=== PATIENT | female | born 1980 | race Caucasian/White ===

== ENCOUNTER 2019-01-14 15:21 | Emergency (ER) | payer SELFPAY ==
[~2019-01-14 15:21] MED LIST: HYDR25CA83 PO; LOR5/325 PO; METR-1 PO; PRED20TA6 PO; RANI-366 PO
--- NOTE | 2019-01-14 15:35 | ER Report ---
History and Physical Time Seen By MD: 15:35 Hx. of Stated Complaint: vaginal bleeding for 10 days not during regular time for pt's menstruation, constant "stabbing and burning" pain "from my vagina to my ribcage". vomiting diarrhea dizziness. HPI/ROS CHIEF COMPLAINT: 10 days of pelvic bleeding an pain HISTORY OF PRESENT ILLNESS: Pt states that she had her regular period the first week of December which lasted 4 days. States that perod was normal. Pt then restarted bleeding 10 days ago and has not stopped. + large clots. Never had irregular period before. + cramping across lower abdomen. + sharp pain. + nausea. Had 2 loose stools today but not sure if that is related. no fevers. no chills. Pt does not think she is . No hx of fibroids or large ovarian cysts. REVIEW OF SYSTEMS: Constitutional: No fever, no chills. Eyes: No discharge. ENT: No sore throat. Cardiovascular: No chest pain, no palpitations. Respiratory: No cough, no shortness of breath. Gastrointestinal: + abdominal pain, + nausea, no vomiting. Genitourinary: No hematuria. Musculoskeletal: No back pain. Skin: No rashes. Neurological: No headache. Allergies: Coded Allergies: No Known Drug Allergies (Unverified , 04/13/16) Home Meds Reported Medications Ibuprofen (IBUPROFEN) 200 Mg Capsule, 1 CAP PO Q6H, CAPSULE 01/14/19 Discontinued Scripts Hydrocodone Bit/Acetaminophen (HYDROCODON-ACETAMINOPHEN 5-325) 1 Each Tablet, 1 EACH PO Q4-6H PRN for PAIN, #15 TAB Prov:ZIYAD DORMAN V DO 06/07/17 Metronidazole (FLAGYL) 500 Mg Tablet, 500 MG PO BID, #14 TAB Prov:ZIYAD DORMAN V DO 06/07/17 Ranitidine Hcl (ZANTAC) 150 Mg Tablet, 150 MG PO BID, #10 TAB Prov:RERE MEADE DO 04/13/16 Prednisone (PREDNISONE) 20 Mg Tablet, 20 MG PO BID, #1 TAB Prov:RERE MEADE DO 04/13/16 Hydroxyzine Pamoate (VISTARIL) 25 Mg Capsule, 25-50 MG PO Q6H for itching, #30 CAPSULE Prov:RERE MEADE DO 7/16/16 Past Medical/Surgical History Pmhx: trichamonas/cervicitis Pshx: noncontrib Reviewed Nurses Notes: Yes Old Medical Records Reviewed: Yes Hx Smoking: Yes Smoking Status: Current: Every Day Smoker Hx Substance Use Disorder: No Hx Alcohol Use: Yes (occ) Constitutional Vital Sign - Last 24 Hours 01/14/19 01/14/19 01/14/19 01/14/19 15:26 15:30 15:36 15:51 Temp 98.6 Pulse 109 106 93 Resp 18 B/P (MAP) 154/102 154/102 (119) Pulse Ox 97 97 96 O2 Delivery Room Air 01/14/19 01/14/19 01/14/19 01/14/19 16:06 16:21 16:29 16:36 Pulse 91 84 81 B/P (MAP) 126/73 (90) Pulse Ox 95 96 95 01/14/19 01/14/19 01/14/19 16:51 17:00 17:06 Pulse 78 76 B/P (MAP) 141/93 (109) Pulse Ox 95 95 Physical Exam General Appearance: The patient is alert, has no immediate need for airway protection and no signs of toxicity. Eyes: Pupils equal and round no pallor or injection, EOMI ENT: no pharyngeal erythema or exudates, Mucous membranes are moist Respiratory: There are no retractions, lungs are clear to auscultation. Cardiovascular: Regular rate and rhythm. pulses are equal and symmetrical Gastrointestinal: Abdomen is soft but diffusely tender in lower abdomen, no masses, bowel sounds normal, no guarding, no rigidity or rebound Pelvic: + 10 ml of blood/clots in vaginal vault on exam. + tender fundus with blood out of os with palpation, no cmt, + r adnexal tender Neurological: Cranial nerves II-XII grossly intact, no sensory or motor loss Skin: Warm and dry, no rashes. Musculoskeletal: Neck is supple non tender, no vertebral tenderness Extremities are nontender, nonswollen and have full range of motion. DIFFERENTIAL DIAGNOSIS: After history and physical exam differential diagnosis was considered for ovarian cysts, fibroids Medical Decision Making Data Points Result Diagram: 01/14/19 1600 01/14/19 1600 Laboratory Hematology Test 01/14/19 16:00 Red Blood Count 4.79 M/uL (4.17-5.56) Mean Corpuscular Volume 87.2 fL (80.0-96.0) Mean Corpuscular Hemoglobin 29.9 pg (26.0-33.0) Mean Corpuscular Hemoglobin Concent 34.3 g/dL (32.0-36.0) Red Cell Distribution Width 12.8 % (11.5-14.5) Mean Platelet Volume 8.1 fL (7.2-11.1) Neutrophils (%) (Auto) 81.0 % (39.4-72.5) Lymphocytes (%) (Auto) 13.0 % (17.6-49.6) Monocytes (%) (Auto) 4.5 % (4.1-12.4) Eosinophils (%) (Auto) 1.0 % (0.4-6.7) Basophils (%) (Auto) 0.5 % (0.3-1.4) Nucleated RBC Relative Count (auto) 0.0 /100WBC Neutrophils # (Auto) 12.6 K/uL (2.0-7.4) Lymphocytes # (Auto) 2.0 K/uL (1.3-3.6) Monocytes # (Auto) 0.7 K/uL (0.3-1.0) Eosinophils # (Auto) 0.2 K/uL (0.0-0.5) Basophils # (Auto) 0.1 K/uL (0.0-0.1) Nucleated RBC Absolute Count (auto) 0.01 K/uL Sodium Level 139 mmol/L (137-145) Potassium Level 4.1 mmol/L (3.5-5.0) Chloride Level 106 mmol/L (98-107) Carbon Dioxide Level 21 mmol/L (22-31) Blood Urea Nitrogen 13 mg/dl (7-18) Creatinine 0.70 mg/dl (0.52-1.04) Glomerular Filtration Rate Calc > 60.0 Random Glucose 98 mg/dl (75-110) Calcium Level 9.9 mg/dl (8.4-10.2) Total Bilirubin 0.5 mg/dl (0.2-1.3) Aspartate Amino Transf (AST/SGOT) 18 U/L (0-35) Alanine Aminotransferase (ALT/SGPT) 21 U/L (0-56) Alkaline Phosphatase 92 U/L (0-126) Total Protein 8.1 g/dl (6.3-8.2) Albumin 4.6 g/dl (3.5-5.0) Human Chorionic Gonadotropin, Qual Negative (NEGATIVE) Chemistry Test 01/14/19 16:00 White Blood Count 15.5 k/uL (4.5-11.0) Red Blood Count 4.79 M/uL (4.17-5.56) Hemoglobin 14.3 g/dL (12.0-16.0) Hematocrit 41.8 % (34.0-47.0) Mean Corpuscular Volume 87.2 fL (80.0-96.0) Mean Corpuscular Hemoglobin 29.9 pg (26.0-33.0) Mean Corpuscular Hemoglobin Concent 34.3 g/dL (32.0-36.0) Red Cell Distribution Width 12.8 % (11.5-14.5) Platelet Count 309 K/uL (150-450) Mean Platelet Volume 8.1 fL (7.2-11.1) Neutrophils (%) (Auto) 81.0 % (39.4-72.5) Lymphocytes (%) (Auto) 13.0 % (17.6-49.6) Monocytes (%) (Auto) 4.5 % (4.1-12.4) Eosinophils (%) (Auto) 1.0 % (0.4-6.7) Basophils (%) (Auto) 0.5 % (0.3-1.4) Nucleated RBC Relative Count (auto) 0.0 /100WBC Neutrophils # (Auto) 12.6 K/uL (2.0-7.4) Lymphocytes # (Auto) 2.0 K/uL (1.3-3.6) Monocytes # (Auto) 0.7 K/uL (0.3-1.0) Eosinophils # (Auto) 0.2 K/uL (0.0-0.5) Basophils # (Auto) 0.1 K/uL (0.0-0.1) Nucleated RBC Absolute Count (auto) 0.01 K/uL Glomerular Filtration Rate Calc > 60.0 Calcium Level 9.9 mg/dl (8.4-10.2) Total Bilirubin 0.5 mg/dl (0.2-1.3) Aspartate Amino Transf (AST/SGOT) 18 U/L (0-35) Alanine Aminotransferase (ALT/SGPT) 21 U/L (0-56) Alkaline Phosphatase 92 U/L (0-126) Total Protein 8.1 g/dl (6.3-8.2) Albumin 4.6 g/dl (3.5-5.0) Human Chorionic Gonadotropin, Qual Negative (NEGATIVE) EKG/Imaging Imaging Complex cyst on Left ovary thickened endometrium 8mm ED Course/Re-evaluation ED Course Check pelvic ultrasound and labs 01/14/2019 5:13:53 pm Page out to toolroom helper 01/14/2019 5:26:05 pm Spoke with . would like me to start Provera 10mg daily for 10 days. Pt can call their office in the morning and her partner, Dr. Jory Balderrama should have openings for her to be seen this week. 01/14/2019 5:36:52 pm Pt agreeable to starting Provera for 10 days and states she will follow up with security nurse. Decision to Disposition Date: Jan 14, 2019 Decision to Disposition Time: 17:37 Depart Departure Latest Vital Signs Vital Signs Date Time Temp Pulse Resp B/P (MAP) Pulse Ox O2 Delivery O2 Flow Rate FiO2 01/14/19 17:06 76 95 01/14/19 17:00 141/93 (109) 01/14/19 15:26 98.6 18 Room Air Core Temperature (Celsius): 36.84 Impression: Primary Impression: Hemorrhagic cyst of left ovary Additional Impressions: Menometrorrhagia Pelvic pain Condition: Improved Disposition: HOME OR SELF-CARE Referrals: JORY BALDERRAMA DO 2 Days Call tomorrow morning to make a follow up appointment this week. New Scripts Medroxyprogesterone Acetate (PROVERA) 10 Mg Tablet 10 MG PO DAILY, #9 TAB start tomorrow, 01/15, evening Prov: ZIYAD DORMAN V DO 01/14/19 Departure Forms: ER Transition Record, Medications Reconciliation, Off Work/School Form, School or Work Release?: Work Number of days to be released: 2 Patient Portal Information Patient Instructions: Menorrhagia (ED), Ovarian Cyst (ED) Additional Instructions: Your ultrasound today showed a complex ovarian cyst. I spoke with Dr. Mobley (field nurse) who would like me to start you on Provera 10mg once a day for 10 days. We gave you your first dose in the emergency room. This will stop your bleeding. You will need to follow up with field nurse for your ovarian cyst as well as your abnormal uterine bleeding. Dr. Mobley suggested you call their office in the morning and her partner, Dr. Balderrama should have some opening to take you as a new patient. Motrin (advil, ibuprofen) 600mg every 6 hours as needed with help reduce your bleeding and cramping. Vicodin one every 6 hours as needed for severe pain (you can take this with the motrin). Problem Qualifiers ZIYAD DORMAN DO Jan 14, 2019 15:35
[2019-01-14] MEDS ORDERED: IBUP-136 PO (15:36)
[2019-01-14] MEDS ORDERED: NS(*) 0.9% 1000 ML BAG 1,000 ML IV ONE (15:45)
[2019-01-14] MEDS ORDERED: KETOROLAC 30 MG/ML VIAL IVP ONE (15:45)
[2019-01-14 16:13] LABS: PLATELET COUNT, AUTOMATED 309 K/uL (150-450)
--- NOTE | 2019-01-14 16:58 | RADIOLOGY IMAGING REPORT ---
[place] [facility] [place] NAME: Shamir Torres : 1980 MR: [id number] V: [id number] EXAM DATE: [id number] ORDERING PHYSICIAN: ZIYAD DORMAN TECHNOLOGIST: Location: [facility] Patient: Shamir Torres : 1980 Visit/Account:[id number] Date of Sevice: 01/14/2019 TRANSVAGINAL NON-OB HISTORY: pelvic pain; menometrorrhagia TECHNIQUE: Transvaginal ultrasound pelvis. COMPARISON: June 07, 2017 FINDINGS: Uterus: ; 7.1 cm length x 3.6 cm AP x 5.5 cm transverse. Myometrium: Unremarkable. Endometrium: Unremarkable; double thickness 8 mm. Cervix: Grossly negative. Ovaries: Right - 3.6 x 2.6 x 2.2 cm Left - 4.2 x 3.6 x 2.3 cm and contains a 2.6 x 1.9 x 2.7 cm complex cystic structure Blood flow is documented in each ovary by duplex Doppler ultrasound. Adnexa: Mildly prominent adnexal vessels bilaterally. Free pelvic fluid: None. IMPRESSION: There is a 2.6 x 1.9 x 2.7 cm complex cystic structure within the left ovary. This could represent a hemorrhagic cyst however short-term interval follow-up ultrasound recommended Slightly prominent adnexal vessels bilaterally Report Dictated By: Keturah Xiong MD at 01/14/2019 4:48 PM Report E-Signed By: Keturah Xiong MD at 01/14/2019 4:54 PM WSN:[id number]
[2019-01-14 17:30] VITALS: BP 134/85
[2019-01-14] MEDS ORDERED: medroxyPROGES ACE 10 MG TAB PO ONE (17:35)
[2019-01-14] MEDS ORDERED: MEDR10TA57 PO (17:40)
[2019-01-14] MEDS ORDERED: HYDR-385 PO (17:40)
== END 2019-01-14 17:55 | disposition home or self-care (01) ==
LOC: ER 15:45
DX: N83.202 Unspecified ovarian cyst, left side (principal); R10.2 Pelvic and perineal pain; N92.1 Excessive and frequent menstruation with irregular cycle; R10.30 Lower abdominal pain, unspecified
CPT/HCPCS: 76830; 84443; 84703; 85025; 96361; 96374; 99284; J1885; J7030; 82040; 82247; 82310; 82374; 82435; 82565; 82947; 84075; 84132; 84155; 84295; 84450; 84460; 84520

== ENCOUNTER 2019-01-21 10:03 | Emergency (ER) | payer SELFPAY ==
[~2019-01-21 10:03] MED LIST changes: +HYDR-385 PO; +IBUP-136 PO; +MEDR10TA57 PO
[2019-01-21] MEDS ORDERED: NS(*) 0.9% 1000 ML BAG 1,000 ML IV ONE ×2 (10:35→11:20)
[2019-01-21] MEDS ORDERED: ONDANSETRON 4 MG/2 ML VIAL IVP ONE (10:35)
--- NOTE | 2019-01-21 10:36 | ER Report ---
History and Physical Time Seen By MD: 10:25 Hx. of Stated Complaint: Pt. has been vomiting since Friday this week. Was seen in ER on Friday, as well. Can't keep food or liquids down. This morning she passed out in the shower. No fever. HPI/ROS CHIEF COMPLAINT: Vomiting HISTORY OF PRESENT ILLNESS: 38-year-old female presents with vomiting for 4 days. Patient states she was seen on January 14 for uterine bleeding. Workup showed complex ovarian cyst and ongoing uterine bleeding. Her OB was consulted and she was started on Provera by mouth. Patient was able to take 2 doses, however, began developing vomiting multiple times since then. She states that anytime she tries to take by mouth, she vomits the contents, as well as some yellow fluid. Patient denies bloody or black vomiting. She has not attempted to take further doses. She does say that the urinary bleeding has been improving. She has vomited multiple episodes each day, too numerous to count. She had one episode of loose, nonbloody, nonblack stool today, however has not had other diarrhea. Patient does not have any significant abdominal pain other than a burning sensation that has developed in the mid epigastric area. She has not had symptoms like this before. She has not taking anything for the vomiting. She feels chills though no fever. She has not had change in urination. REVIEW OF SYSTEMS: Constitutional: No fever, no chills. Eyes: No discharge. ENT: No sore throat. Cardiovascular: No chest pain, no palpitations. Respiratory: No cough, no shortness of breath. Gastrointestinal: above Genitourinary: no dysuria, otherwise as above Musculoskeletal: No back pain. Skin: No rashes. Neurological: No headache. Remainder of the 14 system rev: Yes Allergies: Coded Allergies: No Known Drug Allergies (Unverified , 01/21/19) Home Meds Active Scripts Ondansetron 4 Mg Odt (ONDANSETRON 4 MG ODT) 4 Mg Tab.rapdis, 4 MG PO Q8H for Nausea, #10 TAB Prov:ASHVIN CABRALES MD 01/21/19 Hydrocodone Bit/Acetaminophen (HYDROCODON-ACETAMINOPHEN 5-325) 1 Each Tablet, 1 EACH PO Q4H PRN for PAIN, #10 TAB Prov:ZIYAD DORMAN DO 01/14/19 Medroxyprogesterone Acetate (PROVERA) 10 Mg Tablet, 10 MG PO DAILY, #9 TAB start tomorrow, 01/15, evening Prov:ZIYAD DORMAN DO 01/14/19 Reported Medications Ibuprofen (IBUPROFEN) 200 Mg Capsule, 1 CAP PO Q6H, CAPSULE 01/14/19 Reviewed Nurses Notes: Yes Old Medical Records Reviewed: Yes Hx Smoking: Yes Smoking Status: Current: Every Day Smoker Hx Substance Use Disorder: No Hx Alcohol Use: Yes (occ) Constitutional Vital Sign - Last 24 Hours 01/21/19 01/21/19 01/21/19 01/21/19 10:07 10:09 10:13 10:18 Temp 97.8 Pulse 101 97 84 Resp 16 B/P (MAP) 132/93 132/93 (106) Pulse Ox 96 95 94 O2 Delivery Room Air 01/21/19 01/21/19 01/21/19 01/21/19 10:23 10:28 10:30 10:33 Pulse 91 96 89 B/P (MAP) 136/111 (119) Pulse Ox 95 94 96 01/21/19 01/21/19 01/21/19 01/21/19 10:38 10:43 10:48 10:53 Pulse 76 75 74 75 Pulse Ox 94 96 94 95 01/21/19 01/21/19 01/21/19 01/21/19 10:58 11:00 11:03 11:08 Pulse 77 73 76 B/P (MAP) 147/98 (114) Pulse Ox 93 94 95 01/21/19 01/21/19 01/21/19 01/21/19 11:13 11:18 11:23 11:28 Pulse 73 74 80 79 Pulse Ox 96 94 93 95 01/21/19 01/21/19 01/21/19 01/21/19 11:30 11:33 11:38 11:43 Pulse 78 74 78 B/P (MAP) 152/100 (117) Pulse Ox 95 96 96 01/21/19 01/21/19 01/21/19 01/21/19 11:48 11:53 11:58 12:00 Pulse 74 ? B/P (MAP) 159/60 (93) Pulse Ox 95 01/21/19 01/21/19 01/21/19 01/21/19 12:03 12:08 12:13 12:18 Pulse 74 70 68 64 Pulse Ox 93 95 94 97 01/21/19 01/21/19 01/21/19 01/21/19 12:23 12:28 12:30 12:33 Pulse 68 ??? 74 B/P (MAP) 143/86 (105) Pulse Ox 96 95 95 01/21/19 01/21/19 01/21/19 01/21/19 12:40 12:43 12:48 12:53 Pulse 73 74 71 B/P (MAP) 152/93 (112) Pulse Ox 97 95 95 Intake and Output 01/21/19 01/21/19 01/22/19 15:00 23:00 07:00 Intake Total 2000 ml Balance 2000 ml Physical Exam General Appearance: The patient is alert, has no immediate need for airway protection and no signs of toxicity. Eyes: Pupils equal and round no pallor or injection. ENT, Mouth: mucous membranes are dry Respiratory: There are no retractions, lungs are clear to auscultation. Cardiovascular: Regular rate and rhythm. no m/r/g Gastrointestinal: Abdomen is soft with epigastric ttp, no masses, bowel sounds normal. Neurological: alert oriented, moves all ext Skin: Warm and dry, no rashes. Musculoskeletal: Neck is supple non tender. Extremities are nontender, nonswollen and have full range of motion. DIFFERENTIAL DIAGNOSIS: After history and physical exam differential diagnosis was considered for abdominal pain including but not limited to appendicitis, cholecystitis, gastritis and urinary tract infection, pancreatitis, mass, obstruction, complication of peptic ulcer disease Medical Decision Making Data Points Result Diagram: 01/21/19 1009 01/21/19 1009 Laboratory Hematology Test 01/21/19 10:09 01/21/19 12:36 01/21/19 13:25 Red Blood Count 5.49 M/uL (4.17-5.56) Mean Corpuscular Volume 85.5 fL (80.0-96.0) Mean Corpuscular Hemoglobin 29.5 pg (26.0-33.0) Mean Corpuscular Hemoglobin Concent 34.5 g/dL (32.0-36.0) Red Cell Distribution Width 12.6 % (11.5-14.5) Mean Platelet Volume 8.3 fL (7.2-11.1) Neutrophils (%) (Auto) 83.8 % (39.4-72.5) Lymphocytes (%) (Auto) 8.3 % (17.6-49.6) Monocytes (%) (Auto) 5.9 % (4.1-12.4) Eosinophils (%) (Auto) 1.0 % (0.4-6.7) Basophils (%) (Auto) 1.0 % (0.3-1.4) Nucleated RBC Relative Count (auto) 0.1 /100WBC Neutrophils # (Auto) 17.3 K/uL (2.0-7.4) Lymphocytes # (Auto) 1.7 K/uL (1.3-3.6) Monocytes # (Auto) 1.2 K/uL (0.3-1.0) Eosinophils # (Auto) 0.2 K/uL (0.0-0.5) Basophils # (Auto) 0.2 K/uL (0.0-0.1) Nucleated RBC Absolute Count (auto) 0.02 K/uL Sodium Level 135 mmol/L (137-145) Potassium Level 3.6 mmol/L (3.5-5.0) Chloride Level 98 mmol/L (98-107) Carbon Dioxide Level 23 mmol/L (22-31) Blood Urea Nitrogen 27 mg/dl (7-18) Creatinine 1.00 mg/dl (0.52-1.04) Glomerular Filtration Rate Calc > 60.0 Random Glucose 117 mg/dl (75-110) Calcium Level 9.6 mg/dl (8.4-10.2) Magnesium Level 2.3 mg/dl (1.7-2.2) Total Bilirubin 0.7 mg/dl (0.2-1.3) Aspartate Amino Transf (AST/SGOT) 22 U/L (0-35) Alanine Aminotransferase (ALT/SGPT) 20 U/L (0-56) Alkaline Phosphatase 109 U/L (0-126) Total Protein 7.8 g/dl (6.3-8.2) Albumin 4.2 g/dl (3.5-5.0) Lipase 160 U/L (23-300) Human Chorionic Gonadotropin, Qual Negative (NEGATIVE) Urine Hyaline Casts Few /LPF (NONE-FEW) Urine Color Yellow Urine Clarity Clear Urine pH 6.0 pH (4.8-9.5) Urine Specific [place] 1.048 Urine Protein Negative mg/dL (NEGATIVE) Urine Glucose (UA) Negative mg/dL (NEGATIVE) Urine Ketones 20 mg/dL (NEGATIVE) Urine Blood Moderate (NEGATIVE) Urine Nitrite Negative (NEGATIVE) Urine Bilirubin Negative (NEGATIVE) Urine Urobilinogen Negative mg/dL (0.2-1.9) Urine Leukocyte Esterase Trace (NEGATIVE) Urine RBC 2 /HPF (0-2/HPF) Urine WBC 3 /HPF (0-5/HPF) Urine Squamous Epithelial Cells Few /LPF (</=FEW) Urine Bacteria Negative /HPF (NONE-FEW) Urine Mucus None /HPF (NONE-FEW) Chemistry Test 01/21/19 10:09 01/21/19 12:36 01/21/19 13:25 White Blood Count 20.6 k/uL (4.5-11.0) Red Blood Count 5.49 M/uL (4.17-5.56) Hemoglobin 16.2 g/dL (12.0-16.0) Hematocrit 46.9 % (34.0-47.0) Mean Corpuscular Volume 85.5 fL (80.0-96.0) Mean Corpuscular Hemoglobin 29.5 pg (26.0-33.0) Mean Corpuscular Hemoglobin Concent 34.5 g/dL (32.0-36.0) Red Cell Distribution Width 12.6 % (11.5-14.5) Platelet Count 483 K/uL (150-450) Mean Platelet Volume 8.3 fL (7.2-11.1) Neutrophils (%) (Auto) 83.8 % (39.4-72.5) Lymphocytes (%) (Auto) 8.3 % (17.6-49.6) Monocytes (%) (Auto) 5.9 % (4.1-12.4) Eosinophils (%) (Auto) 1.0 % (0.4-6.7) Basophils (%) (Auto) 1.0 % (0.3-1.4) Nucleated RBC Relative Count (auto) 0.1 /100WBC Neutrophils # (Auto) 17.3 K/uL (2.0-7.4) Lymphocytes # (Auto) 1.7 K/uL (1.3-3.6) Monocytes # (Auto) 1.2 K/uL (0.3-1.0) Eosinophils # (Auto) 0.2 K/uL (0.0-0.5) Basophils # (Auto) 0.2 K/uL (0.0-0.1) Nucleated RBC Absolute Count (auto) 0.02 K/uL Glomerular Filtration Rate Calc > 60.0 Calcium Level 9.6 mg/dl (8.4-10.2) Magnesium Level 2.3 mg/dl (1.7-2.2) Total Bilirubin 0.7 mg/dl (0.2-1.3) Aspartate Amino Transf (AST/SGOT) 22 U/L (0-35) Alanine Aminotransferase (ALT/SGPT) 20 U/L (0-56) Alkaline Phosphatase 109 U/L (0-126) Total Protein 7.8 g/dl (6.3-8.2) Albumin 4.2 g/dl (3.5-5.0) Lipase 160 U/L (23-300) Human Chorionic Gonadotropin, Qual Negative (NEGATIVE) Urine Hyaline Casts Few /LPF (NONE-FEW) Urine Color Yellow Urine Clarity Clear Urine pH 6.0 pH (4.8-9.5) Urine Specific [place] 1.048 Urine Protein Negative mg/dL (NEGATIVE) Urine Glucose (UA) Negative mg/dL (NEGATIVE) Urine Ketones 20 mg/dL (NEGATIVE) Urine Blood Moderate (NEGATIVE) Urine Nitrite Negative (NEGATIVE) Urine Bilirubin Negative (NEGATIVE) Urine Urobilinogen Negative mg/dL (0.2-1.9) Urine Leukocyte Esterase Trace (NEGATIVE) Urine RBC 2 /HPF (0-2/HPF) Urine WBC 3 /HPF (0-5/HPF) Urine Squamous Epithelial Cells Few /LPF (</=FEW) Urine Bacteria Negative /HPF (NONE-FEW) Urine Mucus None /HPF (NONE-FEW) Urinalysis Test 01/21/19 12:36 01/21/19 13:25 Urine Hyaline Casts Few /LPF (NONE-FEW) Urine Color Yellow Urine Clarity Clear Urine pH 6.0 pH (4.8-9.5) Urine Specific [place] 1.048 Urine Protein Negative mg/dL (NEGATIVE) Urine Glucose (UA) Negative mg/dL (NEGATIVE) Urine Ketones 20 mg/dL (NEGATIVE) Urine Blood Moderate (NEGATIVE) Urine Nitrite Negative (NEGATIVE) Urine Bilirubin Negative (NEGATIVE) Urine Urobilinogen Negative mg/dL (0.2-1.9) Urine Leukocyte Esterase Trace (NEGATIVE) Urine RBC 2 /HPF (0-2/HPF) Urine WBC 3 /HPF (0-5/HPF) Urine Squamous Epithelial Cells Few /LPF (</=FEW) Urine Bacteria Negative /HPF (NONE-FEW) Urine Mucus None /HPF (NONE-FEW) ED Course/Re-evaluation ED Course Pt presents with multiple days of vomiting after being placed on progesterone due to uterine bleeding. Has not arranged OB f/u and has not kept down medication, though bleeding has improved. After zofran pt improves in ED, tolerates PO. Leukocytosis noted, and given some abd ttp ,CT ordered, though CT unremarkable for acute findings, and rpt exam benign. Leukocytosis more likely acute phase reactant as pt appears very well after ED eval and understands SRP's Decision to Disposition Date: Jan 21, 2019 Decision to Disposition Time: 13:45 Depart Departure Latest Vital Signs Vital Signs Date Time Temp Pulse Resp B/P (MAP) Pulse Ox O2 Delivery O2 Flow Rate FiO2 01/21/19 12:53 71 95 01/21/19 12:40 152/93 (112) 01/21/19 10:07 97.8 16 Room Air Core Temperature (Celsius): 36.84 Impression: Primary Impression: Vomiting Additional Impressions: Elevated TSH Leukocytosis Condition: Improved Disposition: HOME OR SELF-CARE New Scripts Ondansetron 4 Mg Odt (ONDANSETRON 4 MG ODT) 4 Mg Tab.rapdis 4 MG PO Q8H for Nausea, #10 TAB Prov: ASHVIN CABARLES MD 01/21/19 Patient Instructions: Acute Nausea and Vomiting (ED) Additional Instructions: As we discussed, your CT and initial urine sample were inconclusive for infecti on, however, your repeat urine sample did not show infection. It did show some continued dehydration, so I recommend you continue to hydrate with 1/2 diluted gatorade or similar electrolyte solution. Please follow up with your OB for further evaluation of the ovarian cyst that was previously noted. Also, follow up with your OB and establish a primary care doctor to further evaluate your low thyroid function (elevated TSH). You may use the zofran as needed for nausea/vomiting. Please return immediately for worsening symptoms, unable to tolerate fluids, or any concerns. Problem Qualifiers Primary Impression: Vomiting Vomiting type: unspecified Vomiting Intractability: non-intractable N ausea presence: with nausea Qualified Codes: R11.2 - Nausea with vomiting, unspecified Additional Impressions: Leukocytosis Leukocytosis type: unspecified Qualified Codes: D72.829 - Elevated white blood cell count, unspecified ASHVIN CABRALES MD Jan 21, 2019 10:36
[2019-01-21 10:41] LABS: PLATELET COUNT, AUTOMATED 483 K/uL (150-450)
[2019-01-21] MEDS ORDERED: IOPAMIDOL 76% 150 ML INFUS BTL 150 ML ONE (11:34)
--- NOTE | 2019-01-21 12:36 | RADIOLOGY IMAGING REPORT ---
[place] [facility] [place]: Shamir Torres : 1980 MR: [id number] V: [id number] EXAM DATE: ORDERING PHYSICIAN: ASHVIN CABRALES TECHNOLOGIST: [place]: [facility] [place] Patient: Shamir Torres : 1980 Visit/Account:[id number] Date of Sevice: 01/21/2019 CT ABDOMEN PELVIS W/ CON HISTORY: vomiting, epigastric ttp, leukocytosis left upper quadrant pain x4 days TECHNIQUE: Following administration of IV contrast contiguous axial images acquired through the abdom en/pelvis. Coronal and sagittal reformatting also performed.Dose Lowering Technique One of the following dose optimization techniques was utilized in the performance of this exam: Autom ated exposure control; adjustment of the mA and/or kV according to the patient's size; or use of an i terative reconstruction technique. Specific details can be referenced in the facility's radiology C T exam operational policy. CONTRAST: 75 mL Isovue-370 COMPARISON: June 07, 2017 FINDINGS: Visualized lung bases: Negative. Hepatobiliary: There is an area of focal fatty infiltration adjacent to the falciform ligament Spleen: Negative. Adrenals: Negative. Pancreas: Negative. Kidneys ureters or bladder: There patchy areas of decreased perfusion seen in both kidneys.] Althoug h this could be related to the timing of the contrast bolus pyelonephritis is included in the differe ntial diagnosis. Genitalia: There is a 3.2 cm hypoattenuating region within the left adnexa. The CT Hounsfield units suggest this is not a simple cyst. Additional 2.9 cm hypoattenuating structure is noted in the righ t adnexa. This could represent hemorrhagic cyst although clinical correlation needed. There is a tr breanne amount of free pelvic fluid. GI: There is decreased attenuation seen along the wall of the right side of the colon and transverse colon appears more extensive when compared the prior study. This could imply chronic inflammation. There is also fat seen within the terminal ileal wall also suggesting chronic inflammation. There i s thickening of the wall of the gastric antrum which may be related to gastritis. Vessels/spaces/nodes: Negative. Bones/soft tissues: There is a small umbilical hernia containing fat Additional findings: None pertinent. IMPRESSION: There patchy areas of decreased perfusion in both kidneys. Although this could be related to the yasir ing of the contrast bolus polynephritis should be excluded. There are bilateral hypoattenuating adnexal lesions. This could represent hemorrhagic or complex cys t although pelvic ultrasound would be helpful Trace amount of free pelvic fluid Decreased attenuation along the wall of the right side of the colon and transverse colon appears more extensive when compared to the prior study. This could imply chronic inflammation. Also noted are similar changes in the terminal ileum. There is thickening of the wall the gastric antrum which may be related to gastritis. Report Dictated By: Keturah Xiong MD at 01/21/2019 12:19 PM Report E-Signed By: Keturah Xiong MD at 01/21/2019 12:31 PM JORDENN:ELEAZAR
[2019-01-21 12:40] VITALS: BP 152/93
[2019-01-21] MEDS ORDERED: ONDA4TAB9 PO (13:16)
== END 2019-01-21 13:56 | disposition home or self-care (01) ==
LOC: ER 10:12
DX: R79.89 Other specified abnormal findings of blood chemistry (principal); D72.829 Elevated white blood cell count, unspecified; R11.10 Vomiting, unspecified
CPT/HCPCS: 74177; 81001; 83690; 83735; 84703; 85025; 96361; 96374; 99284; J2405; J7030; Q9967; 82040; 82247; 82310; 82374; 82435; 82565; 82947; 84075; 84132; 84155; 84295; 84450; 84460; 84520